=== PATIENT | male | born 1935 | race Caucasian/White ===

== ENCOUNTER → 2017-03-04 | Outpatient (CLI) | payer OTHER, MEDICARE ==
[2017-03-04 17:42] LABS: BUN/CREATININE RATIO 28.57 (6-20); CALCIUM 8.7 mg/dL (8.7-10.7); SERUM ALBUMIN 3.9 g/dL (3.5-4.8)
== END ==
LOC: LAB 11:25
PROVIDERS: ATTEND Nurse Practitioner Family
DX: I50.9 Heart failure, unspecified (principal); I10 Essential (primary) hypertension; J44.9 Chronic obstructive pulmonary disease, unspecified
CPT/HCPCS: 80053

== ENCOUNTER 2019-03-15 15:39 | Inpatient (IN) ==
--- NOTE | 2019-03-15 15:55 | EKG ---
[address] [address] Measurements Intervals [place] Rate: 71 P: VA: 0 QRS: 143 QRSD: 194 T: -21 QT: 449 QTc: 472 Interpretive Statements ATRIAL FLUTTER FIBRILLATION WITH ABERRANT CONDUCTION OR VENTRICULAR PREMATURE COMPLEXES MARKED RIGHT AXIS DEVIATION [QRS AXIS > 100] INTRAVENTRICULAR CONDUCTION DELAY [130+ ms QRS DURATION] Compared to ECG 09/30/2013 13:22:15 Ventricular premature complex(es) now present Right-axis deviation now present Intraventricular conduction delay now present Left bundle-branch block no longer present Electronically Signed On 03-15-19 16:57:03 MDT by Turner Pang [id number]
[2019-03-15 16:13] LABS: BASOPHILS # (AUTO) 0.01 10*3/UL; BASOPHILS % (AUTO) 0.2 % (0-1); EOSINOPHILS # (AUTO) 0.09 10*3/UL; EOSINOPHILS % (AUTO) 1.6 % (0-8); Hematocrit [HCT] 38.5 % (42.0-52.0); Hemoglobin [HGB] 12.3 g/dL (14.0-18.0); LYMPHOCYTES # (AUTO) 0.52 10*3/uL; MEAN CORPUSCULAR HEMOGLOBIN 31.4 PG (27-31); MEAN CORPUSCULAR HGB CONC 31.9 g/dL (33-37); MEAN CORPUSCULAR VOLUME 98.2 FL (80-90); MEAN PLATELET VOLUME 9.1 FL (7.4-12.2); MONOCYTES # (AUTO) 0.55 10*3/UL (0.3-0.8); MONOCYTES % (AUTO) 9.8 % (5-15); NEUTROPHILS # (AUTO) 4.41 10*3/UL; NEUTROPHILS % (AUTO) 78.9 % (50-80); RED BLOOD COUNT 3.92 10^6/uL (4.70-6.10)
[2019-03-15 16:15] LABS: PLATELET MORPHOLOGY COMMENT NORMAL MORPHOLOGY (NORM); RBC MORPHOLOGY COMMENT NORMAL MORPHOLOGY (NORM); WBC MORPHOLOGY COMMENT NORMAL MORPHOLOGY (NORM)
[2019-03-15 16:22] LABS: VENOUS PH 7.46 (7.32-7.42)
[2019-03-15 16:27] LABS: BLOOD UREA NITROGEN 25 mg/dL (7-22); BUN/CREATININE RATIO 41.66 (6-20); SERUM ALBUMIN 4.3 g/dL (3.5-4.8)
--- NOTE | 2019-03-15 17:21 | DI ---
AP CHEST X-RAY, 03/15/2019 3:47 PM : Clinical History: Dyspnea. Previous Exam: 09/07/2017. Soft Tissues: No acute soft tissue abnormality. Bones: There is cardiomegaly. Heart: Heart Size: Normal heart size. Vascular Pedicle Width: Normal. Azygous Vein: Normal size. Vasc ular Flow Pattern:Reversal of flow to the upper lobes consistent with chronic left heart failure. No perivascular haziness or peribronchial cuffing to indicate interstitial edema. Pulmonary Arteries: Pulmonary arterial hypertension. Lungs: Right lower lobe infiltrate extending to the right pleura laterally. There is some left lower lobe density probably representing atelectasis. Flattened diaphragms. The previous film showed no inc reased retrosternal airspace in this patient probably has combined chronic bronchitis and emphysema. Effusion(s): Right pleural effusion. Mediastinum: Normal mediastinum. Nodules: No pulmonary nodules. Readin. Right lower lobe infiltrate that extends to the pleura with pleural thickening or fluid. This is a new finding and pulmonary embolism with infarction cannot be excluded. 2. Cardiomegaly with chronic left heart failure. Acute left heart failure is felt not to be present. No evidence of right heart failure.
--- NOTE | 2019-03-15 18:48 | DI ---
CT ANGIOGRAM OF THE CHEST, 03/15/2019 5:13 PM : Clinical History: Shortness of breath. Elevated D-dimer test. Previous Exam: None at this facility. Technique: Scans from base of neck to lung bases with IV contrast. Bolus tracking protocol was not us ed for timing the injection because of the patient's known left heart failure. Non-MIPS and MIPS sagi ttal/coronal images generated. IV Contrast: 65 mL of Ultravist 370. Base of Neck: Normal. Nodes: Normal axillary, supraclavicular, mediastinal, and hilar lymph nodes. Heart: Cardiomegaly with right and left atrial enlargement and left ventricular dilatation. The apex of the heart has a bulbous configuration and is markedly thin, consistent with a left ventricular api jaylon aneurysm. There is marked left ventricular output indicating left heart failure. Extensive johnson ry artery calcifications are present in all 3 major branches. Aorta: Aortic aneurysm measuring 43 mm in AP and transverse dimensions. Calcifications are present in the aortic valve indicating calcific aortic valvular disease. Pulmonary Arteries: Marked pulmonary arterial hypertension. Clots are present in the branches to the right lower lobe with a small pleural-based lesion just superior to the pleural effusion, probably re presenting a very small pulmonary infarct. Mediastinum: Normal. Lungs: No infiltrates. Autumn A line Autumn B lines are present most likely secondary to acute left h eart failure. Blebs are scattered throughout the lungs indicating bullous emphysema. There is also th ickening of the bronchi indicating chronic bronchitis. Effusion(s): Small to moderate right pleural effusion. Small left pleural effusion extending into the major fissure. Nodules: None. Bony Structures: Normal visualized portions of ribs, sternum, scapulae, clavicles, and shoulders. Nor mal visualized portions of thoracic spine. READIN. Pulmonary embolism to the right lower lobe with a very small pulmonary infarct. There is marked p ulmonary arterial hypertension. 2. Right and left atrial and left ventricular enlargement with combined acute and chronic biventricu lar failure. 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 Diffuse 3 vessel coronary artery disease. Aortic aneurysm with calcific aortic valvular disease. 3. 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
--- NOTE | 2019-03-15 20:46 | PDOC ---
HPI - History of Present Illness History of Present Illness: This very nice 83-year-old gentleman with a history of congestive heart failure and coronary artery disease and COPD comes into the ER he was feeling short of breath for the last 2 weeks. In the ER he was evaluated by Dr. Keith was found to have congestive heart failure and a pulmonary infarct and pulmonary embolism and dilated heart on CTA. It was recommended by both myself and Dr. Keith that he be transferred to [place] or [place] where there is cardiology support and pulmonary critical care considering his dilation of his heart on CAT scan where he might benefit from intra-arterial directed thrombectomy which they do at the [facility] in [place]. Patient refuses to be transferred he told us both to do the best we can hear only is interested in breathing better. 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 when this happened also has scars in his lower right leg and hand and finger which she obtained in [place] during the war, he also has stents was unable to tell me specifically what kind and winter Tobacco Use: Former Smoker In the Past 12 Months, Have Used or Abuse Any of the Following Substance: None Medication / Allergies Home Medications: Home Medications Medication Instructions Recorded Confirmed Aspirin [Aspir 81] 1 tab PO DAILY 09/30/13 03/15/19 Digoxin 125 mcg PO DAILY tab 08/21/16 03/15/19 Vit A/Vit C/Vit E/Zinc/Copper 1 ea PO QD cap 12/29/16 03/15/19 [Preservision Areds Softgel] budesonide-formoterol HFA 160 2 puff INH BID #10.2 g 08/11/18 03/15/19 mcg-4.5 mcg/actuation aerosol inhaler carvedilol 6.25 mg tablet 3.125 mg PO BID tab 08/11/18 03/15/19 lisinopril 2.5 mg tablet 2.5 mg PO DAILY #90 tab 08/18/18 03/15/19 ipratropium-albuterol 0.5 mg-3 3 ml INH Q6H PRN #90 ml 10/04/18 03/15/19 mg(2.5 mg base)/3 mL nebulization soln potassium chloride ER 20 mEq 20 meq PO QDAY #30 tab 11/02/18 03/15/19 tablet,extended release oxcarbazepine 600 mg tablet 600 mg PO BID tab 12/01/18 03/15/19 furosemide 40 mg tablet See Rx Instructions .ROUTE 12/06/18 03/15/19 .COMPLEX #180 tab simvastatin 10 mg tablet 10 mg PO DAILY #90 tab 12/06/18 03/15/19 clopidogrel 75 mg tablet 75 mg PO QDAY #30 tab 01/17/19 03/15/19 warfarin 5 mg tablet 5 mg PO DAILY #90 tab 03/10/19 03/15/19 Allergies/Adverse Reactions: Allergies Allergy/AdvReac Type Severity Reaction Status Date / Time No Known Allergies Allergy Verified 03/08/19 14:20 Exam - Vitals Vital Signs: Vital Signs Temperature 97.6 F Temperature Source Temporal Artery Scan Pulse Rate [Pulse Oximeter 69 Right] Respiratory Rate 21 Blood Pressure [Left Arm] 126/96 Pulse Ox 81 Oxygen Flow Rate 2 Oxygen Delivery Method Nasal Cannula Height 5 ft 8 in Weight 169 lb - General General Appearance: No Acute Distress, Cooperative - Head Head Exam: Normal Inspection, Normocephalic, Atraumatic - Eye Eye Exam: POSITIVE: Normal Appearance, PERRL, EOMI, No Scleral Icterus - Neck Neck Exam: Normal Inspection, Full ROM, No Tenderness, No Lymphadenopathy, No Thyromegaly, JVP is not Raised - Respiratory Respiratory Exam: POSITIVE: Decreased Breath Sounds. NEGATIVE: Rhonci, Wheezes, Stridor - Cardiovascular Cardiovascular Exam: POSITIVE: Irregular Rhythm - GI/Abdominal GI/Abdominal Exam: POSITIVE: Normal Bowel Sounds, Non Tender, Non Distended, Soft, No Masses, No Hepatomegaly, No Splenomegaly, No Organomegaly - Extremities Extremities Exam: POSITIVE: No Clubbing Present, No Cyanosis Present, +2 Edema - Neurological Neurological Exam: POSITIVE: Alert, Oriented x 3, No Facial Droop, Speech Intact / Clear, Moves All Extremities Equally - Psychiatric Psychiatric Exam: POSITIVE: Normal Affect. NEGATIVE: Anxious, Agitated, Depressed, Suicidal Ideation, Homicidal Ideation Results - Labs CBC and BMP: 03/15/19 16:10 03/15/19 16:10 Assessment and Plan - Patient Problems (1) Pulmonary embolism and infarction Current Visit: Yes Status: Acute Comment: Heparin drip, Lasix drip. I had a long discussion with the patient for about an hour in the emergency room before me Dr. Keith had a discussion with the patient. He understands very well his situation about the pulmonary embolism with a dilated heart the pleural effusion and the congestive heart failure . He also understands that he had a pulmonary embolism or in layman terms This blood clot even though he was anticoagulated on Coumadin .Both me and Dr. Keith recommended he be transferred to [facility] since [facility] is on divert considering also that his office clerk are in [place]. He knows that he is at risk of and stroke from these diagnoses but still refuses to be transferred he states that he is 83 and does not want to go anywhere he wants me to do the best I can do to the best of my abilities he understand I am not a office clerk or lead sustainability specialist, he understands that he might benefit from critical care ICU with the with possible thrombectomy if necessary and understands that we cannot do this here. He understands this and I told him that I can do for him is put him on a heparin drip to try to avoid other blood clot and a Lasix drip and a [place] to have him diuresed so he can breathe better. He is only interested in breathing better. I also asked for the phone numbers of his and his kids to let him know the situation he said he does not want me to call his for his kids are present time if his comes in tomorrow and he we will tell her that he has a blood clot and congestive heart failure and he didn't want to go any other place but tonight he does not want us to call anyone even though he knows he can his life is at risk. The patient is alert and oriented 3 he told me all about his wounds his finger wound to his leg wounds that he got in [place] has good insight and understands everything very clearly he said while in the office clerk 2 weeks ago catch this situation since I was short of breath for about 2 weeks he also states that he had a CAT scan in [place] by Dr. Soto I told him I did not know the reason may be did not have a pulmonary embolism at that time but I will should get the records. He also stated that if his heart stopped or if he stopped breathing he would like to let nature take its course do not attempt to intubate do not attempt to resuscitate. Again he understands very well that this diagnosis could be fatal without specialty care that we cannot offer here at [facility]. Code(s): I26.99 - Other pulmonary embolism without acute cor pulmonale (2) Right heart failure Current Visit: Yes Status: Acute Code(s): I50.810 - Right heart failure, unspecified (3) Right heart failure (secondary to left heart failure) Current Visit: Yes Status: Acute Code(s): I50.814 - Right heart failure due to left heart failure (4) Aortic aneurysm Current Visit: No Status: Acute Code(s): I71.9 - Aortic aneurysm of unspecified site, without rupture (5) History of heart artery stent Current Visit: No Status: Acute Code(s): Z95.5 - Presence of coronary angioplasty implant and graft (6) Shortness of breath Current Visit: No Status: Acute Code(s): R06.02 - Shortness of breath (7) Atrial fibrillation Current Visit: No Status: Chronic Qualifiers: (8) Chronic obstructive pulmonary disease Current Visit: No Status: Chronic Qualifiers: (9) Congestive heart failure Current Visit: No Status: Chronic
[2019-03-15] MEDS ORDERED: fentaNYL Inj 100 MCG/2 ML VIAL IVP PRN (21:30)
[2019-03-15] MEDS ORDERED: LIDOCAINE W/ SODIUM BICARB 0.5 ML SYR SUBD PRN (21:30)
[2019-03-15] MEDS ORDERED: CARVEDILOL 6.25 MG TABLET PO SCH (21:30)
[2019-03-15] MEDS ORDERED: LIDOCAINE HCL 2 % 10 ML JELLY URO-JECT TOPICAL PRN (21:30)
[2019-03-15] MEDS ORDERED: ONDANSETRON 4 MG/2 ML VIAL IV PRN (21:30)
[2019-03-15] MEDS: OXCARBAZEPINE 600 MG PO SCH (22:26)
[2019-03-15] MEDS: Heparin Drip 25,000 UNIT/500 ML BAG IV SCH (22:26)
--- NOTE | 2019-03-15 23:03 | PDOC ---
Dyspnea HPI - General Chief Complaint: Dyspnea Stated Complaint: shortness of breath/retaining fluid Date Seen by Provider: 03/15/19 Time Seen by Provider: 15:40 Source: POSITIVE: Patient, Spouse Exam Limitations: POSITIVE: No limitations Treatment Prior to Arrival: REPORTS: None Nurse's Notes Reviewed & Considered: Yes - History of Present Illness Initial Comments: The patient is an 83-year-old male who presents to the emergency department with complaints of increased shortness of breath. The patient has a history of CHF. He has not been feeling well for the past couple of weeks and actually saw his military technology specialist Dr. Soto within the last couple of weeks. He had had a CT scan of his chest at that time which according to his account did not show any new findings. For the past 2 days however he has had an 8 pound weight gain associated with some increase shortness of breath. The shortness of breath is worse with activity and when he lies down flat. He denies any associated chest pain, cough, fever, headache, increased numbness or weakness in his arms or legs or any other associated complaints currently. The patient is currently anticoagulated with Coumadin. His last INR according to his was last Thursday at which time his level was 2.5. He does not have any known history of blood clots that he is aware of. He does wear oxygen at home all the time. He does take Lasix 80 mg in the morning and 40 mg in the afternoon daily. He was here getting a CT scan of his abdomen and pelvis without contrast for evaluation of possible umbilical hernia just prior to coming here to the emergency department. - Patient Home Medications Home Medications: Home Medications Aspirin [Aspir 81] 1 tab PO DAILY 09/30/13 Digoxin 125 mcg PO DAILY tab 08/21/16 Vit A/Vit C/Vit E/Zinc/Copper [Preservision Areds Softgel] 1 ea PO QD cap 12/29/16 budesonide-formoterol HFA 160 mcg-4.5 mcg/actuation aerosol inhaler 2 puff INH BID #10.2 g 08/11/18 carvedilol 6.25 mg tablet 3.125 mg PO BID tab 08/11/18 lisinopril 2.5 mg tablet 2.5 mg PO DAILY #90 tab 08/18/18 ipratropium-albuterol 0.5 mg-3 mg(2.5 mg base)/3 mL nebulization soln 3 ml INH Q6H PRN #90 ml 10/04/18 potassium chloride ER 20 mEq tablet,extended release 20 meq PO QDAY #30 tab 01/16 oxcarbazepine 600 mg tablet 600 mg PO BID tab 12/01/18 furosemide 40 mg tablet See Rx Instructions .ROUTE .COMPLEX #180 tab 12/06/18 simvastatin 10 mg tablet 10 mg PO DAILY #90 tab 12/06/18 clopidogrel 75 mg tablet 75 mg PO QDAY #30 tab 01/17/19 warfarin 5 mg tablet 5 mg PO DAILY #90 tab 03/10/19 - Patient Allergies Allergies/Adverse Reactions: Allergies Allergy/AdvReac Type Severity Reaction Status Date / Time No Known Allergies Allergy Verified 03/08/19 14:20 Past Medical History - heen HEENT History: Denies History Cardiovascular History: Hypertension, Arrhythmia, Hyperlipidemia, Other (please comment) Additional Cardiovasular History: CARDIAC STENT X1 Respiratory History: Asthma, COPD, Home Oxygen Use Gastrointestinal History: Denies History Genitourinary History: Denies History Endocrine History: Denies History Musculoskeletal History: Denies History Neurological History: Denies History Blood Disorders: Denies History Psychiatric History: Denies History History of Sexually Transmitted Diseases: No Male Reproductive History: Denies History Cancer History: Denies History In Past Year Been Physically Harmed or Verbally Threatened: No History of MDRO: No History of Other Communicable Diseases: No Tobacco Use: Former Smoker Alcohol Use: None In the Past 12 Months, Have Used or Abuse Any Substance: None Previous Surgical History: Yes Type / Date of Surgery: CARDIAC STENT/ABD HERNIA/COLECTOMY FOR COLON CA/GIACOMO LEFT/TRIGEMINAL NEURALGIA PROCEDURE X 2/WAGNER CATARACTS/RIGHT ANKLE SURGERY Significant Family History: Other (please comment) Additional Family History: UNKNOWN Past Medical History Reviewed: Reviewed - No Changes ROS - Limitations ROS Limitations: No Limitations Constitution: DENIES: Chills, Fever Cardiovascular: REPORTS: Edema. DENIES: Chest Pain, Heart Palpitations Respiratory: REPORTS: Shortness Of Breath Neurological: REPORTS: Denies Neuro Symptoms Gastrointestinal: REPORTS: Denies GI Symptoms Musculoskeletal: REPORTS: Lower Extremity Swelling Eyes: REPORTS: Denies Symptoms ENT: REPORTS: Denies Symptoms Dyspnea Physical Exam - General Appearance General Appearance: REPORTS: Alert, Cooperative, No Acute Distress - HEENT HEENT: POSITIVE: Head Inspection Nml, Eyes Inspection Nml, Ears Inspection Nml, Nose Inspection Nml, Pharynx Inspect. Nml - Neck Neck: DENIES: JVD Present - Respiratory Respiratory: REPORTS: Speaks Full Sentences, Other (Breath sounds are diminished with some coarse rhonchi noted in the bases bilaterally, respirations are unlabored). DENIES: No Respiratory Distress - Cardiovascular Cardiovascular: REPORTS: Regular Rate and Rhythm, Heart Sounds Normal Peripheral Pulses: Dorsalis-pedis (R): 2+, Dorsalis-pedis (L): 2+ - Abdomen Abdomen: Soft: (All Quadrants), Normal Bowel Sounds: (All Quadrants), No Guarding: (All Quadrants), No Rebound: (All Quadrants), No Distention: (All Quadrants) - Skin Skin: REPORTS: Intact, Other (He does have some bruising noted to the right medial thigh) - Extremities Additional Extremities Details: He does have edema in the legs bilaterally, some bruising noted to the right medial thigh - Neurological / Psychological Neurological: POSITIVE: Oriented X3, quote clerk Normal As Tested, Motor Normal, Se nsation Normal Dyspnea Progress - Results Reviewed by me Xrays/CTs/US Reviewed by me: Yes Discussed with Radiologist: Yes Radiology Findings: Initial portable chest x-ray read by the radiologist showed possible infiltrate in the right lower lobe which was new from previous study and PE with infarction could not be ruled out, evidence of chronic left-sided heart failure with no evidence of acute failure per radiologist. Subsequent CTA of the chest does show right-sided pulmonary emboli. He does also have evidence of right sided as well as chronic left-sided heart failure with hepatomegaly. Lab Results Reviewed by Me: Yes CBC and BMP: 03/16/19 03:30 03/16/19 03:30 Lab Results:: Laboratory Results 03/15/19 03/15/19 03/15/19 16:05 16:10 16:10 WBC RBC Hgb Hct MCV MCH MCHC RDW Std Deviation RDW Coeff of Elo Plt Count MPV Immature Gran % (Auto) Neut % (Auto) Lymph % (Auto) [place] % (Auto) Eos % (Auto) Baso % (Auto) Immature Gran # (Auto) Neut # (Auto) Lymph # (Auto) [place] # (Auto) Eos # (Auto) Baso # (Auto) WBC Morphology Comment Plt Morphology Comment RBC Morph Comment PT 34.3 H INR 2.95 D-Dimer VBG pH 7.46 H VBG pCO2 45 VBG HCO3 32 H VBG Base Excess 8 H Sodium Potassium Chloride Carbon Dioxide Anion Gap BUN Creatinine Estimated GFR BUN/Creatinine Ratio Glucose Calculated Osmolality Lactic Acid 1.2 Calcium Magnesium Total Bilirubin AST ALT Alkaline Phosphatase Troponin I C-Reactive Protein NT-Pro-B Natriuret Pep Total Protein Albumin Globulin Albumin/Globulin Ratio Digoxin 03/15/19 03/15/19 03/15/19 16:10 16:10 16:10 WBC 5.59 RBC 3.92 L Hgb 12.3 L Hct 38.5 L MCV 98.2 H MCH 31.4 H MCHC 31.9 L RDW Std Deviation 54.8 H RDW Coeff of Elo 15.9 H Plt Count 169 MPV 9.1 Immature Gran % (Auto) 0.2 Neut % (Auto) 78.9 Lymph % (Auto) 9.3 L [place] % (Auto) 9.8 Eos % (Auto) 1.6 Baso % (Auto) 0.2 Immature Gran # (Auto) 0.01 Neut # (Auto) 4.41 Lymph # (Auto) 0.52 [place] # (Auto) 0.55 Eos # (Auto) 0.09 Baso # (Auto) 0.01 WBC Morphology Comment Normal morphology Plt Morphology Comment Normal morphology RBC Morph Comment Normal morphology PT INR D-Dimer VBG pH VBG pCO2 VBG HCO3 VBG Base Excess Sodium Potassium Chloride Carbon Dioxide Anion Gap BUN Creatinine Estimated GFR BUN/Creatinine Ratio Glucose Calculated Osmolality Lactic Acid Calcium Magnesium 2.1 Total Bilirubin AST ALT Alkaline Phosphatase Troponin I 0.018 C-Reactive Protein 1.7 H NT-Pro-B Natriuret Pep 8630 H Total Protein Albumin Globulin Albumin/Globulin Ratio Digoxin 03/15/19 03/15/19 03/15/19 16:10 16:10 16:10 WBC RBC Hgb Hct MCV MCH MCHC RDW Std Deviation RDW Coeff of Elo Plt Count MPV Immature Gran % (Auto) Neut % (Auto) Lymph % (Auto) [place] % (Auto) Eos % (Auto) Baso % (Auto) Immature Gran # (Auto) Neut # (Auto) Lymph # (Auto) [place] # (Auto) Eos # (Auto) Baso # (Auto) WBC Morphology Comment Plt Morphology Comment RBC Morph Comment PT INR D-Dimer 565 H VBG pH VBG pCO2 VBG HCO3 VBG Base Excess Sodium 142 Potassium 4.5 Chloride 101 Carbon Dioxide 31 Anion Gap 10 BUN 25 H Creatinine 0.6 L Estimated GFR Turret Press Operator BUN/Creatinine Ratio 41.66 H Glucose 89 Calculated Osmolality 296.0 H Lactic Acid Calcium 9.2 Magnesium Total Bilirubin 0.7 AST 32 ALT 21 Alkaline Phosphatase 147 H Troponin I C-Reactive Protein NT-Pro-B Natriuret Pep Total Protein 8.0 Albumin 4.3 Globulin 3.6 Albumin/Globulin Ratio 1.10 L Digoxin 0.8 EKG Interpreted/Reviewed By Me:: Yes EKG Interpretation:: POSITIVE: Other (EKG shows an irregular rhythm consistent with atrial fibrillation with a left bundle branch block which has been present on previous EKGs.) - Patient's Progress MDM / ED Course: The patient was quite symptomatic on arrival with shortness of breath with activity and orthopnea. He was afebrile and other vital signs were un remarkable. He was satting in the low 90s on oxygen. EKG shows atrial fibrillation with left bundle branch block which has been present on previous EKGs. His blood work reveals an initial venous blood gas with a pH of 7.46. His white count is normal at 5. His hemoglobin is 12.3. His troponin is normal at 0.019 and his BNP is markedly elevated at 8600. His d-dimer is mildly elevated at 565. His INR is 2.9. His dig level is normal at 0.8 and liver enzymes are all within normal limits with the exception of his alkaline phosphatase being mildly elevated at 144. Chest x-ray showed infiltrate in the right lower lobe with evidence of chronic left heart failure, the radiologist stated that he could not rule out PE with associated infarction in the right lower lobe causing current findings. Subsequent CTA of the chest shows evidence of a right lower lobe pulmonary embolus with associated pulmonary infarction. He has evidence of chronic left heart failure and acute right heart failure with hepatomegaly per radiologist. Current findings were discussed with the patient. I also discussed the patient with Dr. Foss. Because of his PE on current anticoagulation and evidence of acute right heart failure with chronic left heart failure he recommended that the patient be transferred to tertiary care with cardiology available. I did contact [facility] in their currently on divert and unable to care for the patient. I discussed current findings and recommendations with the patient. I did recommend transfer to [place] however the patient refused. The patient told me that he was 83 years old and that he preferred that we just "do what we can" here in our facility. He also told me that he has lived a good life and he is not scared to . He did not want us to contact his or his daughters to discuss this issue. 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 Dr. Foss subsequently came and spoke with the patient and the patient told him basically the same thing. The patient did not appear to be confused and appeared to be capable of making his own decisions. He did not want his family contacted at that point as his has already gone home. The patient understood that his condition could deteriorate by staying here and he still desired to do that. Dr. Foss subsequently admitted the patient for further care. - Consult Counseled: POSITIVE: Patient, RE: Lab Results, RE: Radiology Results, RE: DX, RE: Need for F/U Patient Care Time - Estimated PCT Patient Care Time (In Minutes): 50 Vital Signs - VS Reviewed Vital Signs Reviewed: Yes Discharge Clinical Impression: Pulmonary embolus, Congestive heart failure, Atrial fibrillation, Chronic obstructive pulmonary disease Discharge Disposition: Admit to Inpatient Condition: Serious Patient Problem(s) Reviewed: Yes Date Decision to Admit to Inpatient: 03/15/19 Time Decision to Admit to Inpatient: 20:15
[2019-03-15] MEDS: IPRATROPIUM/ALBUTEROL SULFATE 3 ML NEB NEB PRN (23:36)
[2019-03-16 03:37] LABS: BASOPHILS # (AUTO) 0.02 10*3/UL; BASOPHILS % (AUTO) 0.4 % (0-1); EOSINOPHILS # (AUTO) 0.09 10*3/UL; EOSINOPHILS % (AUTO) 1.6 % (0-8); Hematocrit [HCT] 36.5 % (42.0-52.0); Hemoglobin [HGB] 11.9 g/dL (14.0-18.0); LYMPHOCYTES # (AUTO) 0.62 10*3/uL; MEAN CORPUSCULAR HEMOGLOBIN 31.7 PG (27-31); MEAN CORPUSCULAR HGB CONC 32.6 g/dL (33-37); MEAN CORPUSCULAR VOLUME 97.3 FL (80-90); MEAN PLATELET VOLUME 8.8 FL (7.4-12.2); MONOCYTES # (AUTO) 0.59 10*3/UL (0.3-0.8); MONOCYTES % (AUTO) 10.6 % (5-15); NEUTROPHILS # (AUTO) 4.26 10*3/UL; NEUTROPHILS % (AUTO) 76.1 % (50-80); RED BLOOD COUNT 3.75 10^6/uL (4.70-6.10)
[2019-03-16 03:43] LABS: PLATELET MORPHOLOGY COMMENT NORMAL MORPHOLOGY (NORM); RBC MORPHOLOGY COMMENT NORMAL MORPHOLOGY (NORM); WBC MORPHOLOGY COMMENT NORMAL MORPHOLOGY (NORM)
[2019-03-16 05:21] LABS: BLOOD UREA NITROGEN 22 mg/dL (7-22); BUN/CREATININE RATIO 36.66 (6-20); SERUM ALBUMIN 3.9 g/dL (3.5-4.8)
[2019-03-16] MEDS ORDERED: POTASSIUM CHLORIDE 20 MEQ TAB PO ONE (07:23)
[2019-03-16] MEDS: POTASSIUM CHLORIDE 20 MEQ TAB PO SCH ×2 (08:02→20:14)
[2019-03-16] MEDS: PANTOPRAZOLE IV 40 MG VIAL IVP SCH (08:08)
[2019-03-16] MEDS: DIGOXIN 125 MCG TABLET PO SCH (08:54)
[2019-03-16] MEDS: CARVEDILOL 3.125 MG TABLET PO SCH ×2 (08:54→20:15)
[2019-03-16] MEDS ORDERED: Simvastatin Tab 10 MG TAB PO SCH ×2 (09:00→21:00)
--- NOTE | 2019-03-16 10:36 | PDOC(PROG) ---
Interval History: Patient feels a little better this morning in regards to her shortness of breath he had some good diuresis of about 3 L. He still understands of his medical condition with the PE in the right heart failure and this is very risky for possible stroke and even still refuses to be transferred to higher level of care. He still stating that he is fine here when he should do the best we can he does not care if he dies. Objective : Data - Labs CBC and BMP: 03/16/19 03:30 03/16/19 03:30 Objective : Exam - General General Appearance: Cooperative - Respiratory Respiratory Exam: Decreased Breath Sounds - Cardiovascular Cardiovascular Exam: Irregular Rhythm - GI/Abdominal GI/Abdominal Exam: Normal Bowel Sounds, Non Tender, Non Distended, Soft, No Masses, No Hepatomegaly, No Splenomegaly, No Organomegaly - Extremities Additional Extremities Exam Details: Decrease the lower extremity swelling - Neurological Neurological Exam: Alert, Oriented x 3, No Facial Droop, Speech Intact / Clear, Moves All Extremities Equally Assessment and Plan - Patient Problems (1) Pulmonary embolism and infarction Current Visit: Yes Status: Acute Comment: Continue heparin drip at this point once his heparin drip is off after 48 hours we will try to transition him to eliquis. 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) Current Visit: Yes Status: Acute Code(s): I50.814 - Right heart failure due to left heart failure (4) Aortic aneurysm Current Visit: No Status: Acute Code(s): I71.9 - Aortic aneurysm of u nspecified site, without rupture (5) History of heart artery stent Current Visit: No Status: Acute Code(s): Z95.5 - Presence of coronary angioplasty implant and graft (6) Shortness of breath Current Visit: No Status: Acute Comment: History of COPD continue nebs Code(s): R06.02 - Shortness of breath (7) Atrial fibrillation Current Visit: Yes Status: Chronic Qualifiers: (8) Chronic obstructive pulmonary disease Current Visit: Yes Status: Chronic Qualifiers: (9) Congestive heart failure Current Visit: Yes Status: Chronic
[2019-03-16] MEDS: OXCARBAZEPINE 600 MG PO SCH ×2 (12:43→20:15)
[2019-03-16] MEDS: IPRATROPIUM/ALBUTEROL SULFATE 3 ML NEB NEB PRN (19:15)
[2019-03-16] MEDS: Heparin Drip 25,000 UNIT/500 ML BAG IV SCH (21:00)
[2019-03-17 03:36] LABS: BASOPHILS # (AUTO) 0.01 10*3/UL; BASOPHILS % (AUTO) 0.2 % (0-1); EOSINOPHILS # (AUTO) 0.15 10*3/UL; EOSINOPHILS % (AUTO) 2.5 % (0-8); Hematocrit [HCT] 37.4 % (42.0-52.0); LYMPHOCYTES # (AUTO) 0.78 10*3/uL; MEAN CORPUSCULAR HEMOGLOBIN 31.1 PG (27-31); MEAN CORPUSCULAR HGB CONC 32.1 g/dL (33-37); MEAN CORPUSCULAR VOLUME 96.9 FL (80-90); MEAN PLATELET VOLUME 9.4 FL (7.4-12.2); MONOCYTES % (AUTO) 11.6 % (5-15); NEUTROPHILS % (AUTO) 72.6 % (50-80); RED BLOOD COUNT 3.86 10^6/uL (4.70-6.10)
[2019-03-17 03:37] LABS: PLATELET MORPHOLOGY COMMENT NORMAL MORPHOLOGY (NORM); RBC MORPHOLOGY COMMENT NORMAL MORPHOLOGY (NORM); WBC MORPHOLOGY COMMENT NORMAL MORPHOLOGY (NORM)
[2019-03-17 03:45] LABS: BLOOD UREA NITROGEN 20 mg/dL (7-22); BUN/CREATININE RATIO 28.57 (6-20)
[2019-03-17] MEDS: IPRATROPIUM/ALBUTEROL SULFATE 3 ML NEB NEB PRN (05:34)
[2019-03-17] MEDS: DIGOXIN 125 MCG TABLET PO SCH (09:00)
[2019-03-17] MEDS: CARVEDILOL 3.125 MG TABLET PO SCH (09:00)
[2019-03-17] MEDS: OXCARBAZEPINE 600 MG PO SCH (09:50)
[2019-03-17] MEDS: PANTOPRAZOLE IV 40 MG VIAL IVP SCH (09:50)
[2019-03-17] MEDS: POTASSIUM CHLORIDE 20 MEQ TAB PO SCH (09:50)
--- NOTE | 2019-03-17 10:18 | DI ---
PA /LATERAL CHEST, 03/17/2019 7:54 AM : Clinical History: Pleural effusion. Previous Exam: None at this facility. Soft Tissues: No acute soft tissue abnormality. Bones: Normal. Heart: Heart Size: Cardiomegaly. The right heart border is less prominent. There are calcifications c orresponding to the left ventricular apex on the lateral film, probably representing a calcified myoc ardial infarction. There are also calcifications in the LAD and multiple diagonal branches. Vascular Pedicle Width: Remains increased and unchanged. Azygous Vein: Unchanged. Vascular Flow Pattern:Revers al of flow to the upper lobes. No perivascular haziness but there is peribronchial thickening. This l atter finding may be related to the underlying lung disease. Pulmonary Arteries: Prominent indicating pulmonary arterial hypertension. Proximal dilatation with di stal attenuation and increased tortuosity and segmentation. These findings are typically associated w ith chronic bronchitis. Lungs: The right lower lobe infiltrate shows progressive clearing. There is still pleural thickening or fluid loculated above the right costophrenic angle. "Tram tracking" present. The diaphragms are fl attened but there is no increased retrosternal airspace. 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 Effusion(s): There is still pleural fluid probably in the posterior aspect of the right sulcus. Mediastinum: Normal. Nodules: No pulmonary nodules. Readin. Right pleural effusion persists. Right lower lobe infiltrate is clearing. 2. Cardiomegaly. Stable appearance of chronic right heart failure. There is still chronic left heart failure but no interstitial edema is felt to be present to indicate acute right heart failure. 3. Calcified myocardial infarction in the apex. Extensive coronary artery calcifications are visuali zed on the lateral film. 4. 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
[2019-03-17 11:09] VITALS: BP 136/74; RESP 16; TEMP 97.1; O2SAT 97
[2019-03-17] MEDS ORDERED: Apixaban 5 MG TABLET PO SCH (12:00)
--- NOTE | 2019-03-17 13:31 | DCSUMMARY ---
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 Patient was admitted that he was put on a heparin drip, Lasix drip, with good diuresis his shortness of breath improved during his hospital stay. Intake and Output (24hr x 4 totals) 03/15/19 03/16/19 03/17/19 03/18/19 11:59 11:59 11:59 11:59 Intake Total 370 / 370 2077 / 2077 Output Total 3100 / 3100 2475 / 2475 1999 Balance -2730 / -2730 -398 / -398 -1999 Weight Obtain Weight Start: 03/15/19 21:30 Freq: DAILY 0500 Status: Active Protocol: Document 03/16/19 12:07 [id number] (Rec: 03/16/19 12:07 [id number] NURSE- 05) Document 03/17/19 05:00 [id number] (Rec: 03/17/19 09:09 [id number]) This morning the patient and stated that the he wanted to do it. Discharged home and he would like all his IVs were pulled out [place] pulled out and that he was going home. I did explain to him that I did not recommend this since we are treating still treating his heart failure, his pulmonary emboli and still needed to be monitored for electrolyte imbalance he still has a right pleural effusion and going home and could result in even in his . He said he didn't care if he since he is 83. Also the nurse María spoke to the patient without any difficulty conclusion also had the social contact worker speak to the patient and the he is still very adamant and going home he did call his when she came here the social contact worker talk to his I talked to his explained the whole situation she said that she would try to talk to him into staying of the going to [place] since they also have an appointment with the general surgeon in [place] Dr. Drew Frazier and his staple processing machine operator is there Dr. Soto. I also let her know that the CAT scan that Dr. Drew Frazier ordered did not show any abdominal hernia. We did explain to the that he would his pulmonary embolism and right heart failure and left heart failure he still needs more diuresis and that he could be the reaccumulating fluid quickly without appropriate care she totally understands this she did try to convince her to to stay or go to [place] she was not successful is very adamant about being in the discharged home I told him that this would have to be against my medical advice. He said he appreciates me understanding him wanting to go to his own house since . I spent over 2-1/2 hours with the patient to try to explain every single detail . I also recommended he stay because he is on multiple medications are very difficult to monitor and depending on how he feels which ones to take again he said he is not interested in staying in does not care about which medications he takes anywhere. I also suggested he is a have a hospice consult if he would be interested I did explain to him what hospice was at this point in time he just once to go home . I explained both him and his about the prescription I gave him for L a course I told him to stop taking his Coumadin to start [id number] mg by mouth twice a day for first 7 days and 5 mg by mouth twice a day for the treatment of his pulmonary embolus I instructed him to come back to the hospital if he needed to he was short of breath I did tell him that considering is heart failure he could have arrhythmias which could result in his I told his to call the ambulance if she wanted to and again I ALSO offered him to stay. Again at this time there was no convincing him and he is going home. Before they left a change her mind about a hospice consult and so I wrote an order for hospice On the date of discharge, the patient was examined: Gen.: [No acute distress, alert, nontoxic] Heart: [Irregularly irregular, no murmurs, clicks, gallops, or rubs] Lungs: [Clear to auscultation bilaterally, breathing is nonlabored] Abdomen/GI: [Normal tones on auscultation, soft, nontender, nondistended] Musculoskeletal/extremities: [No clubbing, cyanosis, edema is much improved in his lower extremities I would say it's disappeared at this time] Vitals reviewed and are listed below Vital Signs (24 hrs) 03/16/19 15:00 03/16/19 16:00 03/16/19 17:00 Temperature 98.7 F 97.9 F Pulse Rate 57 L Pulse Rate [Pulse Oximeter Right] 50 L 59 L 57 L Respiratory Rate 18 16 18 Blood Pressure [Left Arm] 117/69 120/68 121/70 Blood Pressure [Right Arm] Pulse Ox 95 94 94 03/16/19 18:00 03/16/19 18:43 03/16/19 19:00 Temperature 97.8 F 97.9 F Pulse Rate 68 Pulse Rate [Pulse Oximeter Right] 72 64 Respiratory Rate 16 22 Blood Pressure [Left Arm] 116/66 116/66 Blood Pressure [Right Arm] Pulse Ox 98 90 03/16/19 19:15 03/16/19 19:16 03/16/19 20:00 Temperature 98.8 F Pulse Rate 67 56 L Pulse Rate [Pulse Oximeter Right] 57 L Respiratory Rate 16 16 20 Blood Pressure [Left Arm] 107/62 Blood Pressure [Right Arm] Pulse Ox 9 99 03/16/19 21:00 03/16/19 22:00 03/16/19 23:00 Temperature 98.1 F 97.9 F Pulse Rate 69 Pulse Rate [Pulse Oximeter Right] 52 L 67 52 L Respiratory Rate 24 22 24 Blood Pressure [Left Arm] 106/67 122/73 106/67 Blood Pressure [Right Arm] Pulse Ox 95 93 98 03/17/19 00:00 03/17/19 01:00 03/17/19 02:00 Temperature 97.5 F Pulse Rate Pulse Rate [Pulse Oximeter Right] 58 L 53 L 64 Respiratory Rate 22 24 24 Blood Pressure [Left Arm] 109/50 115/75 132/85 Blood Pressure [Right Arm] Pulse Ox 96 97 97 03/17/19 03:00 03/17/19 04:00 03/17/19 05:00 Temperature 97.5 F Pulse Rate 73 Pulse Rate [Pulse Oximeter Right] 64 64 57 L Respiratory Rate 22 20 20 Blood Pressure [Left Arm] 121/72 108/65 124/69 Blood Pressure [Right Arm] Pulse Ox 97 96 96 03/17/19 05:34 03/17/19 05:35 03/17/19 05:59 Temperature Pulse Rate 56 L 54 L Pulse Rate [Pulse Oximeter Right] 64 Respiratory Rate 16 16 24 Blood Pressure [Left Arm] 124/69 Blood Pressure [Right Arm] Pulse Ox 93 93 91 03/17/19 07:00 03/17/19 09:00 03/17/19 10:00 Temperature Pulse Rate 55 L Pulse Rate [Pulse Oximeter Right] 70 55 L 66 Respiratory Rate 18 18 18 Blood Pressure [Left Arm] 136/83 125/65 123/74 Blood Pressure [Right Arm] Pulse Ox 96 92 96 03/17/19 11:00 Temperature 97.1 F Pulse Rate Pulse Rate [Pulse Oximeter Right] 54 L Respiratory Rate 16 Blood Pressure [Left Arm] Blood Pressure [Right Arm] 136/74 Pulse Ox 97 Assessment and Plan: 1. As per discharge assessments above 2. Disposition: Home AMA 3. Condition on discharge, stable and improved. 4. Diet: regular diet 5. Activities: resume normal activities 6. Follow-Up: 1. [PCP] 2. 7. Medications at the Time of Discharge: Home Medications Medication Instructions Recorded Confirmed Aspirin [Aspir 81] 1 tab PO DAILY 09/30/13 03/15/19 Vit A/Vit C/Vit E/Zinc/Copper 1 ea PO QD cap 12/29/16 03/15/19 [Preservision Areds Softgel] budesonide-formoterol HFA 160 2 puff INH BID #10.2 g 08/11/18 03/15/19 mcg-4.5 mcg/actuation aerosol inhaler ipratropium-albuterol 0.5 mg-3 3 ml INH Q6H PRN #90 ml 10/04/18 03/15/19 mg(2.5 mg base)/3 mL nebulization soln potassium chloride ER 20 mEq 20 meq PO QDAY #30 tab 11/02/18 03/15/19 tablet,extended release furosemide 40 mg tablet See Rx Instructions .ROUTE 12/06/18 03/15/19 .COMPLEX #180 tab clopidogrel 75 mg tablet 75 mg PO QDAY #30 tab 01/17/19 03/15/19 Digoxin 250 mcg PO DAILY 03/16/19 03/16/19 Apixaban [Eliquis] 10 mg PO BID #60 tab 03/17/19 8. Time, care, counseling and coordination of care for this discharge is greater than 30 minutes. Exam - Vitals Vital Signs: Vital Signs Temperature 97.1 F Temperature Source Temporal Artery Scan Pulse Rate [Pulse Oximeter 54 Right] Pulse Rate 55 Respiratory Rate 16 Blood Pressure [Right Arm] 136/74 Blood Pressure [Left Arm] 123/74 Blood Pressure 135/108 Pulse Ox 97 Oxygen Flow Rate 3 Oxygen Delivery Method Nasal Cannula Height 5 ft 8 in Weight 164 lb 6.4 oz Patient Problems - Patient Problem List (1) Pulmonary embolism and infarction Current Visit: Yes Status: Acute Code(s): I26.99 - Other pulmonary embolism without acute cor pulmonale Category: Medical (2) Right heart failure Current Visit: Yes Status: Acute Code(s): I50.810 - Right heart failure, unspecified Category: Medical (3) Right heart failure (secondary to left heart failure) Current Visit: Yes Status: Acute Code(s): I50.814 - Right heart failure due to left heart failure Category: Medical (4) Aortic aneurysm Current Visit: No Status: Acute Code(s): I71.9 - Aortic aneurysm of unspecified site, without rupture Category: Medical (5) History of heart artery stent Current Visit: No Status: Acute Code(s): Z95.5 - Presence of coronary angioplasty implant and graft Category: Surgical (6) Shortness of breath Current Visit: No Status: Acute Code(s): R06.02 - Shortness of breath Category: Medical (7) Atrial fibrillation Current Visit: Yes Status: Chronic Qualifiers: Category: Medical (8) Chronic obstructive pulmonary disease Current Visit: Yes Status: Chronic Qualifiers: Category: Medical (9) Congestive heart failure Current Visit: Yes Status: Chronic Category: Medical
== END 2019-03-17 12:53 | disposition left against medical advice (07) | DRG 176 ==
LOC: ER 15:39 → ICU 20:29
PROVIDERS: ADMIT Internal Medicine; ATTEND Internal Medicine